=== PATIENT | female | born 1975 | race Two or more races ===

== ENCOUNTER 2016-07-07 10:34 | Emergency (ER) | payer OTHER ==
[~2016-07-07] VITALS: Ht 172.7 cm; Wt 89.4 kg
[2016-07-07] MEDS ORDERED: IV NS 0.9% 1,000 ML ONE (10:47)
[2016-07-07] MEDS ORDERED: IV SET PRIMARY 1 EA INFUS.SET MC ONE (10:47)
[2016-07-07] MEDS ORDERED: LORAZEPAM INJ 2 MG/ML VIAL ONE (10:48)
[2016-07-07] MEDS ORDERED: LORAZEPAM INJ 2 MG/ML VIAL IV ONE (11:00)
[2016-07-07] MEDS ORDERED: IV NS 0.9% 1,000 ML BAG IV ONE (11:00)
[2016-07-07 11:05] LABS: ANION GAP 17 (5-14); CALCIUM, SERUM 9.7 mg/dL (8.5-10.1); CARBON DIOXIDE 21 mmol/L (21-32); CHLORIDE 101 mmol/L (98-107); CREATININE 0.9 mg/dL (0.6-1.3); GFR 70 mL/min (>60); GLUCOSE 139 mg/dL (74-106); POTASSIUM 3.7 mmol/L (3.5-5.1); SODIUM SERUM 136 mmol/L (136-145); UREA NITROGEN, BLOOD 12 mg/dL (7-18)
[2016-07-07 11:19] LABS: ALANINE AMINOTRANSFERASE 99 U/L (12-78); ALBUMIN 4.2 g/dL (3.4-5.0); ASPARTATE AMINOTRANSFERASE 45 U/L (15-37); BASOPHILS # (AUTO) 0.2 /CMM (0.0-0.2); BASOPHILS % (AUTO) 2.1 % (0.0-2.0); BILIRUBIN,DIRECT 0.1 mg/dL (0.0-0.2); BILIRUBIN,TOTAL 0.7 mg/dL (0.2-1.0); DIFF TOTAL % 100 %; EOSINOPHILS % (AUTO) 0.2 % (0.0-6.0); HEMATOCRIT 42 % (33-45); HEMOGLOBIN 13.9 g/dL (11.5-14.8); LYMPHOCYTES % (AUTO) 12.7 % (20.0-44.0); MEAN CORPUSCULAR HEMOGLOBIN 28 PG (26.0-33.0); MEAN CORPUSCULAR HGB CONC 33 g/dl (31.0-36.0); MEAN CORPUSCULAR VOLUME 85 fL (82-100); MONOCYTES # (AUTO) 0.3 /CMM (0.1-1.30); MONOCYTES % (AUTO) 3.8 % (2.0-12.0); NEUTROPHILS # (AUTO) 6.4 /CMM (1.8-8.9); NEUTROPHILS % (AUTO) 81.2 % (43.0-81.0); PLATELET COUNT (AUTO) 289 /CMM (150-450); RED BLOOD CELL COUNT(AUTO) 4.95 MIL/uL (4.0-5.2); TOTAL PROTEIN, SERUM 8.5 g/dL (6.4-8.2); WHITE BLOOD COUNT (AUTO) 7.9 K/uL (4.3-11.0)
[2016-07-07 11:22] LABS: SALICYLATE 1.1 mg/dL (2.8-20.0)
[2016-07-07 11:23] LABS: INDIRECT BILIRUBIN 0.6 mg/dL (0.0-1.1)
[2016-07-07 11:24] LABS: ACETAMINOPHEN 0 ug/ml (10-30)
[2016-07-07 11:27] LABS: KETONES,URINE 80 (NEGATIVE); LEUKOCYTE ESTERASE ,URINE Negative (NEGATIVE)
[2016-07-07 11:30] LABS: ADD UA MICROSCOPIC YES
[2016-07-07 11:42] LABS: WBC,URINE 0-2 /HPF (0-3)
[2016-07-07 11:43] LABS: ADD URINE CULTURE NO
[2016-07-07 11:47] LABS: CANNABINOID, URINE NEGATIVE (NEGATIVE); PHENCYCLIDINE SCREEN,URINE NEGATIVE (NEGATIVE)
[2016-07-07] MEDS ORDERED: IV SET PRIMARY PUMP SET 1 EA INFUS.SET MC ONE (12:28)
[2016-07-07 13:38] VITALS: BP 136/82
== END 2016-07-07 13:39 | disposition home or self-care (01) ==
LOC: ER 10:35
DX: F43.0 Acute stress reaction (principal)
CPT/HCPCS: 36415; 70450; 80048; 80076; 80305; 80329; 81001; 82550; 84703; 85025; 96361; 96374; 99285; A4606; G0480 ×2; J2060; J7030; Z7610; 81000-TC; G6039-TC

== ENCOUNTER 2022-01-18 18:45 | Emergency (ER) | payer BC, OTHER ==
[~2022-01-18] VITALS: Ht 170.2 cm; Wt 104.3 kg
--- NOTE | 2022-01-18 19:53 | NUR ---
[id number]. FROM HOME FOR [place]. PER FAMILY - DOES NOT EAT AND DOES NOT INTERACT NOTED TACHYCARDIC 140 . PT NON VERBAL BUT RESPONSIVE TO PAIN AT THIS TIME. TOLERATING R/A AT 98% WITH NO RESP DISTRESS. CONNECTED PT TO POX AND MONITOR. SAFETY MEASURES IN PLACE.
[2022-01-18] MEDS ORDERED: IV NS 0.9% 1,000 ML BAG IV ONE ×2 (20:00→21:30)
[2022-01-18 20:28] LABS: BASOPHILS % (AUTO) 0.5 % (0.0-2.0); HEMATOCRIT 39 % (33-45); HEMOGLOBIN 12.5 g/dL (11.5-14.8); LYMPHOCYTES # (AUTO) 1.3 K/uL (0.8-4.8); LYMPHOCYTES % (AUTO) 18.8 % (20.0-44.0); MEAN CORPUSCULAR HGB CONC 32 g/dl (31.0-36.0); MEAN CORPUSCULAR VOLUME 78 fL (82-100); MONOCYTES # (AUTO) 0.5 K/uL (0.1-1.30); MONOCYTES % (AUTO) 7.9 % (2.0-12.0); NEUTROPHILS # (AUTO) 4.9 K/uL (1.8-8.9); NEUTROPHILS % (AUTO) 72.8 % (43.0-81.0); PLATELET COUNT (AUTO) 276 K/uL (150-450); RED BLOOD CELL COUNT(AUTO) 4.96 MIL/uL (4.0-5.2); WHITE BLOOD COUNT (AUTO) 6.8 K/uL (4.3-11.0)
[2022-01-18 20:40] LABS: CALCIUM, SERUM 8.6 mg/dL (8.5-10.1); CARBON DIOXIDE 24 mmol/L (21-32); CHLORIDE 105 mmol/L (98-107); CREATININE 0.8 mg/dL (0.6-1.3); GLUCOSE 114 mg/dL (74-106); POTASSIUM 3.3 mmol/L (3.5-5.1); SODIUM SERUM 139 mmol/L (136-145); UREA NITROGEN, BLOOD 11 mg/dL (7-18)
[2022-01-18 20:47] LABS: ALANINE AMINOTRANSFERASE 221 U/L (12-78); ALBUMIN 3.7 g/dL (3.4-5.0); ALCOHOL, BLOOD < 3 mg/dL (0-0); ALKALINE PHOSPHATASE 119 U/L (46-116); ASPARTATE AMINOTRANSFERASE 106 U/L (15-37); BILIRUBIN,DIRECT 0.3 mg/dL (0.0-0.2); BILIRUBIN,TOTAL 1.1 mg/dL (0.2-1.0); TOTAL PROTEIN, SERUM 8.2 g/dL (6.4-8.2)
[2022-01-18] MEDS ORDERED: POTASSIUM CHLORIDE 20 MEQ TAB.PRT.SR PO ONE ×2 (21:00→21:03)
[2022-01-18] MEDS ORDERED: IV NS 0.9% 500 ML BAG IV ONE (21:30)
--- NOTE | 2022-01-18 21:42 | NUR ---
urine collected and sent lab
[2022-01-18 22:20] LABS: BILIRUBIN,URINE NEGATIVE (NEGATIVE); COLOR,URINE YELLOW (YELLOW); LEUKOCYTE ESTERASE ,URINE MODERATE (NEGATIVE); NITRITE, URINE NEGATIVE (NEGATIVE); PH,URINE 6.5 (5.0-8.0); PROTEIN,URINE NEGATIVE (NEGATIVE); UGLUCOSE NEGATIVE (NEGATIVE); UROBILINOGEN,URINE 0.2 EU/dL (0.2)
[2022-01-18 22:26] LABS: BACTERIA,URINE Few /HPF (None Seen); RBC,URINE 0-2 /HPF (0-2); SQUAMOUS EPITHELIAL CELL,UR Few /HPF (None Seen)
[2022-01-18] MEDS ORDERED: LORAZEPAM 1 MG TABLET ONE (22:50)
[2022-01-18] MEDS ORDERED: LORAZEPAM 1 MG TABLET PO ONE (23:00)
--- NOTE | 2022-01-19 05:09 | NUR ---
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
[2022-01-19 05:57] VITALS: BP 150/88
--- NOTE | 2022-01-19 05:57 | NUR ---
Patient discharged to home in stable condition and picked up by mother. Written and verbal after care instructions given. Patient verbalizes understanding of instruction. IV removed. Catheter intact and site benign. Pressure and 4x4 applied to site. No bleeding noted. PT ambulatory with a steady gait
== END 2022-01-19 05:58 | disposition home or self-care (01) ==
LOC: ER 19:11
DX: R46.1 Bizarre personal appearance (principal); I10 Essential (primary) hypertension
CPT/HCPCS: 99285; 96360; 96361; 85025; 80048; 87086; 80076; 81001; 36415; 80143; 80320; 80307; J7030 ×3; G0480

== ENCOUNTER 2022-03-03 07:26 | Emergency (ER) | payer BC ==
[~2022-03-03] VITALS: Ht 170.2 cm; Wt 108.9 kg
[2022-03-03 07:35] VITALS: BP 129/98
--- NOTE | 2022-03-03 07:35 | NUR ---
BIBMOTHER C/O ANXIETY X2DAYS PT STATED THAT SHE HAS BEEN UNDER A LOT OF STRESS LATELY. PT IHEART RATE IS ELEVATED, MD AWARE. AWAITING MD ORDERS.
[2022-03-03] MEDS ORDERED: MELA5TAB25 PO (07:46)
[2022-03-03] MEDS ORDERED: LORAZEPAM 1 MG TABLET ONE (07:55)
--- NOTE | 2022-03-03 07:58 | NUR ---
MEDICATED ORDERED, DISCHARGE TO TO WAIT FOR MOM/RIDE
[2022-03-03] MEDS ORDERED: LORAZEPAM 1 MG TABLET PO ONE (08:00)
--- NOTE | 2022-03-03 08:07 | NUR ---
Patient discharged to home in stable condition. Written and verbal after care instructions given. Patient verbalizes understanding of instruction.
== END 2022-03-03 08:07 | disposition home or self-care (01) ==
LOC: ER 07:34
DX: F43.0 Acute stress reaction (principal); G47.00 Insomnia, unspecified; I10 Essential (primary) hypertension; Z79.899 Other long term (current) drug therapy

== ENCOUNTER 2022-05-17 11:50 | Emergency (ER) | payer BC ==
[~2022-05-17] VITALS: Ht 170.2 cm; Wt 90.7 kg
[~2022-05-17 11:50] MED LIST: MELA5TAB25 PO
--- NOTE | 2022-05-17 12:10 | NUR ---
BIBRA 88 ALRTERED MENTAL STATUS FOUND LYING ON STREET. PLACED ON BED, AAOX4- CALM, BREATHING EVEN AND UNLABORED.
--- NOTE | 2022-05-17 12:11 | NUR ---
AT BEDSIDE FOR EVAL.
--- NOTE | 2022-05-17 12:45 | NUR ---
RETAIL MANAGER AT BEDSIDE
--- NOTE | 2022-05-17 13:01 | NUR ---
URINE SAMPLE SENT TO LAB
[2022-05-17 13:21] LABS: EOSINOPHILS % (AUTO) 0.1 % (0.0-6.0); HEMATOCRIT 42 % (33-45); HEMOGLOBIN 13.4 g/dL (11.5-14.8); LYMPHOCYTES # (AUTO) 1.2 K/uL (0.8-4.8); LYMPHOCYTES % (AUTO) 18.5 % (20.0-44.0); MEAN CORPUSCULAR HGB CONC 32 g/dl (31.0-36.0); MEAN CORPUSCULAR VOLUME 83 fL (82-100); MONOCYTES # (AUTO) 0.5 K/uL (0.1-1.30); MONOCYTES % (AUTO) 7.7 % (2.0-12.0); NEUTROPHILS % (AUTO) 73.7 % (43.0-81.0); PLATELET COUNT (AUTO) 233 K/uL (150-450); RED BLOOD CELL COUNT(AUTO) 5.02 MIL/uL (4.0-5.2); WHITE BLOOD COUNT (AUTO) 6.8 K/uL (4.3-11.0)
[2022-05-17 13:38] LABS: ALANINE AMINOTRANSFERASE 228 U/L (12-78); ALBUMIN 3.8 g/dL (3.4-5.0); ALCOHOL, BLOOD < 3 mg/dL (0-0); ALKALINE PHOSPHATASE 94 U/L (46-116); ASPARTATE AMINOTRANSFERASE 115 U/L (15-37); BILIRUBIN,DIRECT 0.4 mg/dL (0.0-0.2); BILIRUBIN,TOTAL 1.2 mg/dL (0.2-1.0); CARBON DIOXIDE 24 mmol/L (21-32); CHLORIDE 103 mmol/L (98-107); CREATININE 1.1 mg/dL (0.6-1.3); GLUCOSE 120 mg/dL (74-106); POTASSIUM 3.3 mmol/L (3.5-5.1); SODIUM SERUM 140 mmol/L (136-145); TOTAL PROTEIN, SERUM 8.1 g/dL (6.4-8.2); UREA NITROGEN, BLOOD 16 mg/dL (7-18)
[2022-05-17 13:39] LABS: ACETAMINOPHEN < 10 ug/ml (10-30)
[2022-05-17 14:11] LABS: BILIRUBIN,URINE 1+ (NEGATIVE); COLOR,URINE YELLOW (YELLOW); LEUKOCYTE ESTERASE ,URINE NEGATIVE (NEGATIVE); NITRITE, URINE NEGATIVE (NEGATIVE); PROTEIN,URINE 1+ mg/dl (NEGATIVE); UGLUCOSE NEGATIVE (NEGATIVE)
[2022-05-17 14:32] LABS: BACTERIA,URINE Few /HPF (None Seen); SQUAMOUS EPITHELIAL CELL,UR Many /HPF (None Seen)
[2022-05-17 15:22] VITALS: BP 140/98
--- NOTE | 2022-05-17 15:23 | NUR ---
Patient discharged to home in stable condition. Written and verbal after care instructions given. Patient verbalizes understanding of instruction.
== END 2022-05-17 15:23 | disposition home or self-care (01) ==
LOC: ER 11:54
DX: R46.1 Bizarre personal appearance (principal); I10 Essential (primary) hypertension; Z79.899 Other long term (current) drug therapy
CPT/HCPCS: 36415; 80048-TC; 80076-TC; 81001; 85025-TC; G0480

== ENCOUNTER 2022-06-14 20:10 | Emergency (ER) | payer BC ==
[~2022-06-14] VITALS: Ht 170.2 cm; Wt 127.0 kg
[2022-06-14] MEDS ORDERED: LORAZEPAM INJ 2 MG/ML VIAL ONE (20:41)
[2022-06-14 20:59] LABS: BASOPHILS % (AUTO) 0.2 % (0.0-2.0); EOSINOPHILS % (AUTO) 0.1 % (0.0-6.0); HEMATOCRIT 41 % (33-45); HEMOGLOBIN 13.2 g/dL (11.5-14.8); LYMPHOCYTES # (AUTO) 1.8 K/uL (0.8-4.8); LYMPHOCYTES % (AUTO) 28.5 % (20.0-44.0); MEAN CORPUSCULAR HGB CONC 33 g/dl (31.0-36.0); MEAN CORPUSCULAR VOLUME 83 fL (82-100); MONOCYTES # (AUTO) 0.4 K/uL (0.1-1.30); NEUTROPHILS % (AUTO) 64.2 % (43.0-81.0); PLATELET COUNT (AUTO) 255 K/uL (150-450); RED BLOOD CELL COUNT(AUTO) 4.87 MIL/uL (4.0-5.2); WHITE BLOOD COUNT (AUTO) 6.3 K/uL (4.3-11.0)
[2022-06-14] MEDS ORDERED: LORAZEPAM INJ 2 MG/ML VIAL IM/IV ONE (21:00)
[2022-06-14 21:19] LABS: ALANINE AMINOTRANSFERASE 208 U/L (12-78); ALBUMIN 3.7 g/dL (3.4-5.0); ALCOHOL, BLOOD < 3 mg/dL (0-0); ALKALINE PHOSPHATASE 102 U/L (46-116); ASPARTATE AMINOTRANSFERASE 114 U/L (15-37); BILIRUBIN,DIRECT 0.2 mg/dL (0.0-0.2); BILIRUBIN,TOTAL 0.7 mg/dL (0.2-1.0); CALCIUM, SERUM 9.3 mg/dL (8.5-10.1); CARBON DIOXIDE 25 mmol/L (21-32); CHLORIDE 103 mmol/L (98-107); GLUCOSE 137 mg/dL (74-106); SODIUM SERUM 138 mmol/L (136-145); TOTAL PROTEIN, SERUM 8.3 g/dL (6.4-8.2); UREA NITROGEN, BLOOD 13 mg/dL (7-18)
[2022-06-14 21:21] LABS: ACETAMINOPHEN 0 ug/ml (10-30)
--- NOTE | 2022-06-14 22:08 | NUR ---
OMARI FROM HOME TO ER BED. AWAKE, NON VERBAL. NOT IN RESP DISTRESS. BROUGHT IN FOR BEING NONVERBAL AND CATATONIC STATE. PT WAS REPORTED TO HAVE BEEN TAKING HER CLOTHES OFF. PER REPORT, PT GET THIS EPISODE EVERY NOW AND THEN. UPON TRIAGE PT WAS NOT ABLE TO VERBALIZE HER WHAT SHE IS HERE FOR. MD WAS AT THE BEDSIDE. ORDERS RECEIVED. WILL CONTINUE TO MONITOR
[2022-06-15 06:41] VITALS: BP 145/70
--- NOTE | 2022-06-15 06:41 | NUR ---
Patient discharged to home in stable condition. Written and verbal after care instructions given. Patient verbalizes understanding of instruction. Pt ambulatory with a steady gait
--- NOTE | 2022-06-15 06:41 | NUR ---
Patient discharged to home in stable condition. Written and verbal after care instructions given. Patient verbalizes understanding of instruction.
== END 2022-06-15 06:41 | disposition home or self-care (01) ==
LOC: ER 20:13
DX: R46.1 Bizarre personal appearance (principal); Z79.899 Other long term (current) drug therapy
CPT/HCPCS: 99283; 96372; 85025; 80048; 80076; 36415; 80143; 80320; J2060; G0480

== ENCOUNTER 2023-09-20 02:32 | Emergency (ER) | payer BC, OTHER ==
[~2023-09-20] VITALS: Ht 165.1 cm; Wt 86.2 kg
[2023-09-20 02:46] VITALS: TEMP 98.1
[2023-09-20 04:00] VITALS: BP 144/109; O2SAT 98
== END 2023-09-20 04:22 ==
LOC: ER 02:42
DX: R07.89 Other chest pain (principal); Z79.899 Other long term (current) drug therapy; Z53.20 Procedure and treatment not carried out because of patient's decision for unspecified reasons